=== PATIENT | male | born 1960 | race Caucasian/White ===

== ENCOUNTER 2018-01-12 15:13 | Inpatient (IN) | payer OTHER ==
[~2018-01-12] VITALS: Ht 188 cm; Wt 113.2 kg
[2018-01-12] MEDS ORDERED: SODIUM CHLORIDE 0.9% 1,000ML IVBOLUS ONE (15:30)
[2018-01-12] MEDS ORDERED: INSU100V8 SQ (15:52)
[2018-01-12 15:53] LABS: O2 FLOW ROOM AIR L/min; PH, VENOUS 7.398 pH (7.320-7.420)
[2018-01-12] MEDS ORDERED: CLOP75TA PO (15:53)
[2018-01-12] MEDS ORDERED: INSU100C SQ-INSULIN (15:53)
[2018-01-12] MEDS ORDERED: CHOL400C11 PO (15:54)
[2018-01-12] MEDS ORDERED: ATOR40TA78 PO (15:54)
[2018-01-12] MEDS ORDERED: ISOS30TA8 PO (15:55)
[2018-01-12] MEDS ORDERED: VENL150C PO (15:56)
[2018-01-12] MEDS ORDERED: CARV12.52 PO (15:56)
[2018-01-12 15:57] LABS: BASOPHILS # (AUTO) 0.02 x10^3/uL (0-0.1); BASOPHILS % (AUTO) 0 % (0-1); EOSINOPHILS # (AUTO) 0.03 x10^3/uL (0-0.4); EOSINOPHILS % (AUTO) 0 % (1-7); LYMPHOCYTES # (AUTO) 1.34 x10^3/uL (1-3.4); LYMPHOCYTES % (AUTO) 13 % (22-44); MD NO; MEAN CORPUSCULAR HEMOGLOBIN 28.3 pg (27.5-34.5); MEAN CORPUSCULAR HGB CONC 33.1 g/dL (33.2-36.2); MEAN CORPUSCULAR VOLUME 85.6 fL (81-97); MEAN PLATELET VOLUME 9.8 fL (7.4-10.4); MONOCYTES # (AUTO) 0.65 x10^3/uL (0.2-0.8); MONOCYTES % (AUTO) 7 % (2-9); NEUTROPHILS # (AUTO) 7.94 x10^3/uL (1.8-6.8); NEUTROPHILS % (AUTO) 80 % (42-75); PLATELET COUNT 229 x10^3/uL (130-400); RED BLOOD COUNT 5.67 x10^6/uL (4.38-5.82); RED CELL DISTRIBUTION WIDTH 12.7 % (9.4-14.8)
[2018-01-12] MEDS ORDERED: LISI-170 PO (15:57)
[2018-01-12] MEDS ORDERED: ASPI81TA14 PO (15:58)
[2018-01-12 16:06] LABS: ACETONE, SERUM Moderate(40mg/dL) mg/dL (Negative)
[2018-01-12 16:07] LABS: ALANINE AMINOTRANSFERASE 69 U/L (12-78); ALBUMIN 3.5 g/dL (3.4-5.0); ANION GAP 18 mmol/L (5-15); CALCIUM 9.3 mg/dL (8.5-10.1); CHLORIDE 78 mmol/L (98-107); CREATININE 2.08 mg/dL (0.7-1.3)
[2018-01-12 16:09] LABS: ALKALINE PHOSPHATASE 192 U/L (45-117); BILIRUBIN,TOTAL 1.6 mg/dL (0.2-1.0); TOTAL PROTEIN 7.4 g/dL (6.4-8.2)
[2018-01-12] MEDS ORDERED: SODIUM CHLORIDE FLUSH 10ML SYR IVF ONE (16:30)
[2018-01-12] MEDS ORDERED: INSULIN LISPRO 100 UNITS/ML, PEN SQ-INSULIN SCH (17:00)
[2018-01-12] MEDS ORDERED: ACETAMINOPHEN 325 MG TABLET PO PRN (17:00)
[2018-01-12] MEDS ORDERED: SODIUM CHLORIDE FLUSH 10ML SYR IVF PRN (17:00)
[2018-01-12] MEDS ORDERED: GUAIFENESIN/DM 200-20MG, 10ML UDC PO PRN (17:00)
[2018-01-12] MEDS ORDERED: ONDANSETRON ODT 4 MG PO PRN (17:00)
[2018-01-12] MEDS ORDERED: POLYETHYLENE GLYCOL 17 GM PACKET PO PRN (17:00)
[2018-01-12] MEDS ORDERED: MAGNESIUM SULFATE PMX 2GM/50ML 50 ML IV ONE (17:30)
[2018-01-12 17:36] LABS: THYROID STIMULATING HORMONE 3.18 mIU/L (0.358-3.740)
[2018-01-12 17:53] LABS: MICROSCOPIC NOT IND
[2018-01-12] MEDS: LABETALOL 5MG/ML, 20ML IVPush PRN ×2 (17:56→20:16)
[2018-01-12 18:00] LABS: CULTURE INDICATED? NO
[2018-01-12] MEDS: SODIUM CHLORIDE 0.9% 1,000 ML IV SCH ×2 (18:19→23:36)
[2018-01-12] MEDS: ENOXAPARIN 40 MG/0.4 ML SQ SCH (18:20)
[2018-01-12 18:34] LABS: HEMOGLOBIN A1C 13.7 % (4.2-6.3)
[2018-01-12 19:00] VITALS: BP 153/90
[2018-01-12] MEDS: ATORVASTATIN 40 MG TABLET PO SCH (19:47)
[2018-01-12] MEDS: ISOSORBIDE MONONITRATE ER 30 MG TABLET PO SCH (19:47)
[2018-01-12] MEDS: CARVEDILOL 12.5 MG TABLET PO SCH (19:47)
[2018-01-12] MEDS: INSULIN GLARGINE 100 UNITS/ML, PEN SQ-INSULIN SCH (19:49)
[2018-01-12 20:21] LABS: ANION GAP 14 mmol/L (5-15); CHLORIDE 89 mmol/L (98-107); CREATININE 1.68 mg/dL (0.7-1.3)
[2018-01-12] MEDS ORDERED: LABETALOL 5MG/ML, 20ML IVPush PRN (22:00)
[2018-01-13 00:02] LABS: ANION GAP 11 mmol/L (5-15); CALCIUM 8.7 mg/dL (8.5-10.1); CHLORIDE 92 mmol/L (98-107)
[2018-01-13] MEDS: SODIUM CHLORIDE 0.9% 1,000 ML IV SCH ×3 (00:41→19:36)
[2018-01-13] MEDS ORDERED: INSULIN LISPRO 100 UNITS/ML, PEN SQ-INSULIN ONE (01:00)
[2018-01-13 04:00] VITALS: BP 132/55
[2018-01-13 04:29] LABS: BASOPHILS # (AUTO) 0.04 x10^3/uL (0-0.1); BASOPHILS % (AUTO) 1 % (0-1); EOSINOPHILS # (AUTO) 0.27 x10^3/uL (0-0.4); EOSINOPHILS % (AUTO) 4 % (1-7); LYMPHOCYTES # (AUTO) 2.51 x10^3/uL (1-3.4); LYMPHOCYTES % (AUTO) 32 % (22-44); MD NO; MEAN CORPUSCULAR HEMOGLOBIN 28.5 pg (27.5-34.5); MEAN CORPUSCULAR HGB CONC 33.7 g/dL (33.2-36.2); MEAN CORPUSCULAR VOLUME 84.5 fL (81-97); MEAN PLATELET VOLUME 9.1 fL (7.4-10.4); MONOCYTES # (AUTO) 0.57 x10^3/uL (0.2-0.8); MONOCYTES % (AUTO) 7 % (2-9); NEUTROPHILS # (AUTO) 4.37 x10^3/uL (1.8-6.8); NEUTROPHILS % (AUTO) 56 % (42-75); PLATELET COUNT 163 x10^3/uL (130-400); RED BLOOD COUNT 4.92 x10^6/uL (4.38-5.82); RED CELL DISTRIBUTION WIDTH 12.9 % (9.4-14.8)
[2018-01-13 04:38] LABS: ALANINE AMINOTRANSFERASE 48 U/L (12-78); ALBUMIN 2.8 g/dL (3.4-5.0); ANION GAP 10 mmol/L (5-15); CALCIUM 8.6 mg/dL (8.5-10.1); CHLORIDE 96 mmol/L (98-107); CREATININE 1.06 mg/dL (0.7-1.3)
[2018-01-13 04:42] LABS: ALKALINE PHOSPHATASE 134 U/L (45-117); BILIRUBIN,TOTAL 1.1 mg/dL (0.2-1.0); CHOL/HDL RATIO 4.3; CHOLESTEROL, TOTAL 129 mg/dL (140-239); HDL CHOL % 23 % (26-37); HDL CHOLESTEROL (DIRECT) 30 mg/dL (40-60); LDL CHOLESTEROL,CALCULATED 55 mg/dL (54-169); LDL/HDL RATIO 1.8 (0.5-3.0); TRIGLYCERIDES 221 mg/dL (50-200); VLDL CHOLESTEROL 44 mg/dL (0-25)
[2018-01-13] MEDS: INSULIN LISPRO 100 UNITS/ML, PEN SQ-INSULIN SCH ×4 (08:06→21:00)
[2018-01-13] MEDS: ISOSORBIDE MONONITRATE ER 30 MG TABLET PO SCH ×2 (08:48→21:32)
[2018-01-13] MEDS: CARVEDILOL 12.5 MG TABLET PO SCH ×2 (08:48→21:32)
[2018-01-13] MEDS: ASPIRIN 81 MG TABLET EC PO SCH (08:48)
[2018-01-13] MEDS: SENNA/DOCUSATE TABLET PO SCH (08:49)
[2018-01-13] MEDS: VENLAFAXINE 75 MG CAP ER PO SCH (08:49)
[2018-01-13] MEDS: CLOPIDOGREL 75 MG TABLET PO SCH (08:49)
[2018-01-13] MEDS: CHOLECALCIFEROL 400 UNIT PO SCH (08:53)
[2018-01-13] MEDS: INSULIN GLARGINE 100 UNITS/ML, PEN SQ-INSULIN SCH (10:17)
[2018-01-13 11:12] VITALS: BP 133/74
[2018-01-13 12:05] VITALS: BP 172/99
[2018-01-13] MEDS: ENOXAPARIN 40 MG/0.4 ML SQ SCH (16:15)
[2018-01-13 19:15] VITALS: BP 151/66
[2018-01-13] MEDS ORDERED: INSULIN GLARGINE 100 UNITS/ML, PEN SQ-INSULIN SCH (21:00)
[2018-01-13 21:28] VITALS: BP 145/75
[2018-01-13] MEDS: ATORVASTATIN 40 MG TABLET PO SCH (21:31)
[2018-01-14 02:51] VITALS: BP 128/72
[2018-01-14] MEDS: SODIUM CHLORIDE 0.9% 1,000 ML IV SCH ×2 (03:08→08:43)
[2018-01-14 06:25] VITALS: BP 150/75
[2018-01-14] MEDS: CHOLECALCIFEROL 400 UNIT PO SCH (08:45)
[2018-01-14] MEDS: CLOPIDOGREL 75 MG TABLET PO SCH (08:45)
[2018-01-14] MEDS: INSULIN LISPRO 100 UNITS/ML, PEN SQ-INSULIN SCH ×2 (08:45→11:46)
[2018-01-14] MEDS: SENNA/DOCUSATE TABLET PO SCH (08:45)
[2018-01-14] MEDS: ASPIRIN 81 MG TABLET EC PO SCH (08:45)
[2018-01-14] MEDS: CARVEDILOL 12.5 MG TABLET PO SCH (08:46)
[2018-01-14] MEDS ORDERED: INSULIN GLARGINE 100 UNITS/ML, PEN SQ-INSULIN SCH (09:00)
[2018-01-14] MEDS: ISOSORBIDE MONONITRATE ER 30 MG TABLET PO SCH (09:27)
[2018-01-14] MEDS: VENLAFAXINE 75 MG CAP ER PO SCH (09:27)
[2018-01-14 12:03] VITALS: BP 141/65
[2018-01-14] MEDS ORDERED: INSU100V8 SQ (12:37)
== END 2018-01-14 14:20 | disposition home or self-care (01) | DRG 637 ==
LOC: ED 16:31 → EDIP 16:32 → ED 17:12 → CCU 17:33 → 3NW 01-13 11:08 → 5SO 01-13 12:01 → DCLOUNGE 01-14 14:07
PROVIDERS: ADMIT Internal Medicine; ATTEND Internal Medicine
DX: E10.65 Type 1 diabetes mellitus with hyperglycemia (principal); N17.0 Acute kidney failure with tubular necrosis; E55.9 Vitamin D deficiency, unspecified; E78.5 Hyperlipidemia, unspecified; I10 Essential (primary) hypertension; R00.1 Bradycardia, unspecified; I25.10 Atherosclerotic heart disease of native coronary artery without angina pectoris; I25.2 Old myocardial infarction; Z95.5 Presence of coronary angioplasty implant and graft; Z79.4 Long term (current) use of insulin; Z79.899 Other long term (current) drug therapy; Z79.82 Long term (current) use of aspirin
CPT/HCPCS: 36415; 80048; 80053; 80061; 81003; 82010; 82803; 82962; 83036; 83690; 83735; 84100; 84443; 85025; 87081; 93005; 96360; J1650; Q0162; J1815; J3475; J7030